=== PATIENT | male | born 1955 | race American Indian/Alaskan Native ===

== ENCOUNTER 2018-04-22 20:01 | Observation (INO) | payer MEDICARE ==
[2018-04-22 21:20] LABS: BASO % 0.5 % (0.0-2.0); EOS # 0.1 K/uL (0.0-0.7); EOS % 1.6 % (0.0-4.0); HEMOGLOBIN 12.7 g/dL (12.0-18.0); LYMPH # 1.1 K/uL (1.0-4.3); LYMPH % 16.7 % (20.0-40.0); MEAN CORPUSCULAR HEMOGLOBIN 22.7 pg (27.0-31.0); MEAN CORPUSCULAR HGB CONC 32.4 g/dL (33.0-37.0); MEAN PLATELET VOLUME 10.3 fL (7.2-11.7); MONO # 0.5 K/uL (0.0-0.8); MONO % 7.8 % (0.0-10.0); NEUT # 4.9 K/uL (1.8-7.0); NEUT % 73.4 % (50.0-75.0); NRBC % 0.1 % (0.0-2.0); RBC 5.61 Mil/uL (4.40-5.90); RED CELL DISTRIBUTION WIDTH 16.4 % (11.5-14.5); WHITE BLOOD COUNT 6.7 K/uL (4.8-10.8)
[2018-04-22 21:23] LABS: URINE BILIRUBIN NEGATIVE (NEGATIVE); URINE BLOOD NEGATIVE (NEGATIVE); URINE CLARITY Clear (Clear); URINE COLOR Straw (YELLOW); URINE GLUCOSE (UA) NORMAL (Normal); URINE LEUKOCYTE ESTERASE NEG Leu/uL (Negative); URINE PROTEIN 2+ mg/dL (NEGATIVE); URINE UROBILINOGEN NORMAL mg/dL (0.2-1.0)
[2018-04-22 21:29] LABS: ALB/GLOB RATIO 1.2 (1.0-2.1); ALBUMIN 3.4 g/dL (3.5-5.0); ALT/SGPT 31 U/L (21-72); AST/SGOT 31 U/L (17-59); BLOOD UREA NITROGEN 24 mg/dL (9-20); CALCIUM 8.5 mg/dl (8.6-10.4); GFR NON-AFRICAN AMERICAN > 60
[2018-04-22 21:30] LABS: INR 1.1; PROTHROMBIN TIME 12.2 SECONDS (9.7-12.2)
--- NOTE | 2018-04-22 21:34 | C.PDOC ---
History Of Present Illness 63 y/o male with PMHx of HTN, presents to the ED with complaints of left-sided chest pain and left shoulder pain, associated with palpations, that began this evening. Denies any fever, cough, nausea, vomiting, cold sweats, dizziness, or URI symptoms. Denies any prior hx of acute IN. Time Seen by Provider: 04/22/18 20:51 Chief Complaint (Nursing): Palpitations History Per: Patient History/Exam Limitations: no limitations Onset/Duration Of Symptoms: Hrs Current Symptoms Are (Timing): Still Present Past Medical History Reviewed: Historical Data, Nursing Documentation, Vital Signs Vital Signs: Last Vital Signs Temp 98.3 F 04/22/18 20:05 Pulse 72 04/22/18 20:45 Resp 16 04/22/18 20:45 BP 141/65 04/22/18 20:45 Pulse Ox 97 04/22/18 20:45 - Medical History PMH: HTN Family History: States: No Known Family Hx - Social History Hx Alcohol Use: No Hx Substance Use: No - Immunization History Hx Tetanus Toxoid Vaccination: No Hx Influenza Vaccination: Yes Hx Pneumococcal Vaccination: Yes Review Of Systems Constitutional: Negative for: Fever, Chills, Sweats Cardiovascular: Positive for: Chest Pain, Palpitations Respiratory: Negative for: Cough Gastrointestinal: Negative for: Nausea, Vomiting, Diarrhea Musculoskeletal: Positive for: Shoulder Pain Neurological: Negative for: Weakness, Dizziness Physical Exam - Physical Exam Appears: Non-toxic, No Acute Distress Skin: Warm, Dry, No Diaphoretic Head: Atraumatic, Normacephalic Eye(s): bilateral: Normal Inspection, PERRL, EOMI Oral Mucosa: Moist Neck: Normal ROM Chest: Symmetrical, No Deformity, No Tenderness Cardiovascular: Rhythm Regular, No Murmur Respiratory: Normal Breath Sounds, No Rales, No Rhonchi, No Wheezing Gastrointestinal/Abdominal: Soft, No Tenderness, No Distention Extremity: Normal ROM (with FROM of b/l upper extremities), No Tenderness, No Pedal Edema, No Deformity Neurological/Psych: Oriented x3, Normal Speech ED Course And Treatment - Laboratory Results Result Diagrams: 04/22/18 21:08 04/22/18 21:08 ECG: Interpreted By Me, Viewed By Me ECG Rhythm: Sinus Rhythm, Nonspecific Changes Interpretation Of ECG: No prior EKG for comparison Rate From EC (bpm) O2 Sat by Pulse Oximetry: 97 Medical Decision Making Medical Decision Making: cp ro acs vs metabolic vs pe Initial Plan: --CMP --Pro-BNP --Trop --CBC --d dimer --PTT --UA --Chest x-ray Labs and imaging reviewed, discussed w/ patient. cxr neg as read by me. pt r eports taking asa today. pt with symptom <6 hours from onset to ed presentaiton . will need serial trop. ekg with lateral changes, no previous for comparison. accepted for obs. Disposition - Disposition Disposition: HOSPITALIZED Disposition Time: 18:00 Condition: STABLE - Clinical Impression Clinical Impression: Palpitations, Chest pain - Scribe Statement The provider has reviewed the documentation as recorded by the Carmel Carlin Provider Attestation: All medical record entries made by the Carmel were at my direction and personally dictated by me. I have reviewed the chart and agree that the record accurately reflects my personal performance of the history, physical exam, medical decision making, and the department course for this patient. I have also personally directed, reviewed, and agree with the discharge instructions and disposition. Decision To Admit - Pt Status Changed To: Hospital Disposition Of: Observation - . Bed Request Type: Telemetry Admitting Physician: Felice العراقي Patient Diagnosis: Palpitations, Chest pain
[2018-04-22 21:43] LABS: B-TYPE NATRIURETIC PEPTIDE 279 pg/mL (0-900)
[2018-04-22 21:50] LABS: D DIMER < 200.0 ng/mlDDU (0-243)
--- NOTE | 2018-04-22 22:41 | CP.PCM.HP ---
Past Patient History - Past Social History Smoking Status: Former Smoker - CARDIAC Hx Hypertension: Yes - PSYCHIATRIC Hx Substance Use: No - SURGICAL HISTORY Hx Herniorrhaphy: Yes (VENTRAL) Other/Comment: RIGHT KNEE SURGERY - ANESTHESIA Hx Anesthesia: Yes Hx Anesthesia Reactions: No Meds Allergies/Adverse Reactions: Allergies Allergy/AdvReac Type Severity Reaction Status Date / Time No Known Allergies Allergy Unverified 04/22/18 20:12 Results - Vital Signs Recent Vital Signs: Last Vital Signs Temp 98.1 F 04/22/18 22:00 Pulse 68 04/22/18 22:00 Resp 19 04/22/18 22:00 BP 143/68 04/22/18 22:00 Pulse Ox 98 04/22/18 22:00 - Labs Result Diagrams: 04/22/18 21:08 04/22/18 21:08 Labs: Laboratory Results - last 24 hr 04/22/18 04/22/18 04/22/18 21:08 21:08 21:08 WBC 6.7 RBC 5.61 Hgb 12.7 Hct 39.2 MCV 70.0 L MCH 22.7 L MCHC 32.4 L RDW 16.4 H Plt Count 131 MPV 10.3 Neut % (Auto) 73.4 Lymph % (Auto) 16.7 L Lares % (Auto) 7.8 Eos % (Auto) 1.6 Baso % (Auto) 0.5 Neut # (Auto) 4.9 Lymph # (Auto) 1.1 Lares # (Auto) 0.5 Eos # (Auto) 0.1 Baso # (Auto) 0.0 PT 12.2 INR 1.1 D-Dimer, Quantitative < 200.0 Sodium Potassium Chloride Carbon Dioxide Anion Gap BUN Creatinine Est GFR ( Amer) Est GFR (Non-Af Amer) Random Glucose Calcium Total Bilirubin AST ALT Alkaline Phosphatase Troponin I NT-Pro-B Natriuret Pep Total Protein Albumin Globulin Albumin/Globulin Ratio Urine Color Straw Urine Clarity Clear Urine pH 6.0 Ur Specific Abbot 1.011 Urine Protein 2+ H Urine Glucose (UA) Normal Urine Ketones Negative Urine Blood Negative Urine Nitrate Negative Urine Bilirubin Negative Urine Urobilinogen Normal Ur Leukocyte Esterase Neg Urine WBC (Auto) < 1 Urine RBC (Auto) < 1 04/22/18 21:08 WBC RBC Hgb Hct MCV MCH MCHC RDW Plt Count MPV Neut % (Auto) Lymph % (Auto) Lares % (Auto) Eos % (Auto) Baso % (Auto) Neut # (Auto) Lymph # (Auto) Lares # (Auto) Eos # (Auto) Baso # (Auto) PT INR D-Dimer, Quantitative Sodium 137 Potassium 3.7 Chloride 101 Carbon Dioxide 25 Anion Gap 14 BUN 24 H Creatinine 1.2 Est GFR ( Amer) > 60 Est GFR (Non-Af Amer) > 60 Random Glucose 147 H Calcium 8.5 L Total Bilirubin 0.5 AST 31 ALT 31 Alkaline Phosphatase 63 Troponin I < 0.0120 NT-Pro-B Natriuret Pep 279 Total Protein 6.3 Albumin 3.4 L Globulin 2.9 Albumin/Globulin Ratio 1.2 Urine Color Urine Clarity Urine pH Ur Specific Abbot Urine Protein Urine Glucose (UA) Urine Ketones Urine Blood Urine Nitrate Urine Bilirubin Urine Urobilinogen Ur Leukocyte Esterase Urine WBC (Auto) Urine RBC (Auto) Assessment & Plan - Assessment and Plan (Free Text) Plan: cardio [email or web address] asp nifedipine er losartan cardiac
--- NOTE | 2018-04-23 09:16 | RAD ---
Date of service: 04/22/2018 HISTORY: chest pain COMPARISON: None available. FINDINGS: LUNGS: Poor inspiration with low lung volumes, crowded bronchovascular markings and mild bibasilar atelectasis right greater than left. PLEURA: No significant pleural effusion identified, no pneumothorax apparent. CARDIOVASCULAR: No aortic atherosclerotic calcification present. Normal cardiac size. No pulmonary vascular congestion. OSSEOUS STRUCTURES: No significant abnormalities. VISUALIZED UPPER ABDOMEN: Normal. OTHER FINDINGS: None. IMPRESSION: Poor inspiration with low lung volumes, crowded bronchovascular markings and mild bibasilar atelectasis right greater than left.
[2018-04-23] MEDS ORDERED: NIFEDIPINE 60 MG PO SCH (10:00)
[2018-04-23] MEDS ORDERED: Enoxaparin 40 mg Syringe SC SCH (10:00)
[2018-04-23] MEDS ORDERED: LOSARTAN 50 MG PO SCH (10:00)
[2018-04-23] MEDS ORDERED: Pantoprazole 40 mg EC Tab PO SCH (10:00)
[2018-04-23] MEDS ORDERED: NIFEdipine 60 mg ER Tab PO SCH (10:15)
[2018-04-23 16:23] VITALS: TEMP 98.2
--- NOTE | 2018-04-23 18:03 | CP.PCM.CON ---
History of Present Illness - History of Present Illness History of Present Illness: I was asked to see patient by Dr العراقي. Patient seen 04/23/18 1800 Patient is a 63 year old male with HTN, hypercholesterolemia who presents with palpitations. Patient was driving back to [place] when he felt the sensation of palpitations and irregularity in the heart beat. He felt pressure in his back. He states he follows with a heel seat sander in [place]. Last stress test was normal in May as per patient. Review of Systems - Constitutional Constitutional: absent: As Per HPI, Anorexia, Chills, Daytime Sleepiness, Excessive Sweating, Fatigue, Fever, Frequent Falls, Headache, Increased Appetite, Lethargy, Malaise, Night Sweats, Snoring, Sleep Apnea, Weight Gain, Weight Loss, Weakness, Other - EENT Eyes: absent: As Per HPI, Blind Spots, Blurred Vision, Change in Vision, Decreased Night Vision, Diplopia, Discharge, Dry Eye, Exophthalmos, Floaters, Irritation, Itchy Eyes, Loss of Peripheral Vision, Pain, Photophobia, Requires Corrective Lenses, Sees Flashes, Spots in Vision, Tunnel Vision, Other Visual Disturbances, Loss of Vision, Other Ears: absent: As Per HPI, Decreased Hearing, Ear Discharge, Ear Pain, Tinnitus, Abnormal Hearing, Disequilibrium, Dizziness, Other Nose/Mouth/Throat: absent: As Per HPI, Epistaxis, Nasal Congestion, Nasal Discharge, Nasal Obstruction, Nasal Trauma, Nose Pain, Post Nasal Drip, Sinus Pain, Sinus Pressure, Bleeding Gums, Change in Voice, Dental Pain, Dry Mouth, Dysphagia, Halitosis, Hoarsness, Lip Swelling, Mouth Lesions, Mouth Pain, Odynophagia, Sore Throat, Throat Swelling, Tongue Swelling, Facial Pain, Neck Pain, Neck Mass, Other - Cardiovascular Cardiovascular: Palpitations - Respiratory Respiratory: absent: As Per HPI, Cough, Dyspnea, Hemoptysis, Dyspnea on Exertion, Wheezing, Snoring, Stridor, Pain on Inspiration, Chest Congestion, Excessive Mucous Production, Change in Mucous Color, Pain with Coughing, Other - Gastrointestinal Gastrointestinal: absent: As Per HPI, Abdominal Pain, Belching, Bloating, Change in Bowel Habits, Change in Stool Character, Coffee Ground Emesis, Constipation, Cramping, Diarrhea, Dyspepsia, Dysphagia, Early Satiety, Excessive Flatus, Fecal Incontinence, Heartburn, Hematemesis, Hematochezia, Loose Stools, Melena, Nausea, Odynophagia, Temesmus, Vomiting, Other - Genitourinary Genitourinary: absent: As Per HPI, Change in Urinary Stream, Difficulty Urinating, Dysuria, Flank Pain, Hematuria, Pyuria, Nocturia, Urinary Incontinenc e, Urinary Frequency, Urinary Hesitance, Urinary Urgency, Voiding Freq/Small Amts, Freq UTI, Hx Renal/Bladder Calculi, Hx /Renal Surgery, Bladder Distension, Other - Musculoskeletal Musculoskeletal: absent: As Per HPI, Abnormal Gait, Arthralgias, Atrophy, Back Pain, Deformity, Joint Swelling, Limited Range of Motion, Loss of Height, Muscle Cramps, Muscle Weakness, Myalgias, Neck Pain, Numbness, Radiating Pain into Limb, Stiffness, Tingling, Other - Integumentary Integumentary: absent: As Per HPI, Acne, Alopecia, Bleeding Lesions, Change in Hair, Change in Nails, Change in Pigmentation, Changing Lesions, Dry Skin, Erythema, Furuncle, Hirsutism, Lesions, New Lesions, Non-Healing Lesions, Photosensitivity, Pruritus, Rash, Skin Pain, Skin Ulcer, Sores, Striae, Swelling, Unusual Bruising, Wounds, Jaundice, Other - Neurological Neurological: absent: As Per HPI, Abnormal Gait, Abnormal Hearing, Abnormal Movements, Abnormal Speech, Behavioral Changes, Burning Sensations, Confusion, Convulsions, Disequilibrium, Dizziness, Numbness, Focal Weakness, Frequent Falls, Headaches, Lack of Coordination, Loss of Vision, Memory Loss, Paresthesias, Radicular Pain, Restless Legs, Sensory Deficit, Syncope, Tingling, Tremor, Vertigo, Weakness, Other Visual Disturbances, Other - Psychiatric Psychiatric: absent: As Per HPI, Abnormal Sleep Pattern, Anhedonia, Anxiety, Auditory Hallucinations, Behavioral Changes, Change in Appetite, Change in Li benji, Confusion, Depression, Difficulty Concentrating, Hallucinations, Homicidal Ideation, Hopelessness, Irritability, Memory Loss, Mood Swings, Panic Attacks, Paranoia, Suicidal Ideation, Visual Hallucinations, Tactile Hallucinations, Other - Endocrine Endocrine: absent: As Per HPI, Change in Body Appearance, Change in Libido, Cold Intolorance, Deepening of Voice, Excessive Sweating, Fatigue, Flushing, Heat Intolorance, Increase in Ring/Shoe/Hat Size, Palpitations, Polydipsia, Polyphagia, Polyuria, Other - Hematologic/Lymphatic Hematologic: absent: As Per HPI, Easy Bleeding, Easy Bruising, Lymphadenopathy, Other Past Patient History - Past Medical History & Family History Past Medical History?: Yes - Past Social History Smoking Status: Former Smoker - CARDIAC Hx Cardiac Disorders: Yes Hx Hypercholesterolemia: Yes Hx Hypertension: Yes - PULMONARY Hx Respiratory Disorders: Yes Hx Sleep Apnea: Yes (2008) - NEUROLOGICAL Hx Neurological Disorder: Yes Other/Comment: "Neuropathy, spondilolesthesis, tingling" - HEENT Hx HEENT Problems: Yes Hx Epistaxis: Yes - RENAL Hx Chronic Kidney Disease: Yes Other/Comment: Kidney cysts "multiple" - ENDOCRINE/METABOLIC Hx Endocrine Disorders: No - HEMATOLOGICAL/ONCOLOGICAL Hx Blood Disorders: Yes Hx Cancer: Yes (Prostate CA s/p cryoablation 03/2017) - INTEGUMENTARY Hx Dermatological Problems: No - MUSCULOSKELETAL/RHEUMATOLOGICAL Hx Musculoskeletal Disorders: Yes Hx Arthritis: Yes Hx Back Pain: Yes Hx Falls: No Hx Fractures: Yes (Left foot stress fracture) - GASTROINTESTINAL Hx Gastrointestinal Disorders: Yes Hx Fatty Liver Disease: Yes - GENITOURINARY/GYNECOLOGICAL Hx Genitourinary Disorders: Yes Hx Prostate Problems: Yes - PSYCHIATRIC Hx Psychophysiologic Disorder: No Hx Substance Use: No - SURGICAL HISTORY Hx Surgeries: Yes Hx Herniorrhaphy: Yes (VENTRAL) Other/Comment: RIGHT KNEE SURGERY - ANESTHESIA Hx Anesthesia: Yes Hx Anesthesia Reactions: No Hx Malignant Hyperthermia: No Has any member of the family had a problem w/ anesthesia?: No Meds Allergies/Adverse Reactions: Allergies Allergy/AdvReac Type Severity Reaction Status Date / Time No Known Allergies Allergy Unverified 04/22/18 20:12 - Medications Medications: Current Medications Aspirin (Aspirin) 325 mg PO DAILY [facility] Last Admin: 04/23/18 10:21 Dose: 325 mg Ezetimibe (Zetia) 10 mg PO DAILY [facility] Enoxaparin Sodium (Lovenox) 40 mg SC DAILY [facility] Last Admin: 04/23/18 10:21 Dose: 40 mg Ibuprofen (Motrin Tab) 600 mg PO Q8 PRN PRN Reason: Pain Losartan Potassium (Cozaar) 50 mg PO DAILY [facility] Last Admin: 04/23/18 11:02 Dose: 50 mg Nifedipine (Procardia Xl) 60 mg PO DAILY [facility] Last Admin: 04/23/18 11:00 Dose: 60 mg Pantoprazole Sodium (Protonix Ec Tab) 40 mg PO DAILY [facility] Last Admin: 04/23/18 10:18 Dose: 40 mg Physical Exam - Constitutional Appears: Non-toxic - Head Exam Head Exam: NORMAL INSPECTION - Eye Exam Eye Exam: Normal appearance - ENT Exam ENT Exam: Mucous Membranes Moist - Neck Exam Neck exam: Positive for: Full Rom - Respiratory Exam Respiratory Exam: NORMAL BREATHING PATTERN - Cardiovascular Exam Cardiovascular Exam: REGULAR RHYTHM, RRR, +S1, +S2 Additional comments: ectopic beats - GI/Abdominal Exam GI & Abdominal Exam: Normal Bowel Sounds - Rectal Exam Rectal Exam: Deferred - Extremities Exam Extremities exam: Positive for: normal inspection. Negative for: pedal edema - Back Exam Back exam: NORMAL INSPECTION - Neurological Exam Neurological exam: Alert, Oriented x3 - Psychiatric Exam Psychiatric exam: Normal Affect - Skin Skin Exam: Normal Color Results - Vital Signs Recent Vital Signs: Last Vital Signs Temp 98.2 F 04/23/18 16:22 Pulse 64 04/23/18 16:22 Resp 16 04/23/18 16:22 BP 167/71 H 04/23/18 16:22 Pulse Ox 98 04/23/18 16:22 - Labs Result Diagrams: 04/22/18 21:08 04/22/18 21:08 Labs: Laboratory Results - last 24 hr 04/22/18 04/22/18 04/22/18 21:08 21:08 21:08 WBC 6.7 RBC 5.61 Hgb 12.7 Hct 39.2 MCV 70.0 L MCH 22.7 L MCHC 32.4 L RDW 16.4 H Plt Count 131 MPV 10.3 Neut % (Auto) 73.4 Lymph % (Auto) 16.7 L [place] % (Auto) 7.8 Eos % (Auto) 1.6 Baso % (Auto) 0.5 Neut # (Auto) 4.9 Lymph # (Auto) 1.1 [place] # (Auto) 0.5 Eos # (Auto) 0.1 Baso # (Auto) 0.0 PT 12.2 INR 1.1 D-Dimer, Quantitative < 200.0 Sodium Potassium Chloride Carbon Dioxide Anion Gap BUN Creatinine Est GFR ( Amer) Est GFR (Non-Af Amer) POC Glucose (mg/dL) Random Glucose Calcium Total Bilirubin AST ALT Alkaline Phosphatase Troponin I NT-Pro-B Natriuret Pep Total Protein Albumin Globulin Albumin/Globulin Ratio Urine Color Straw Urine Clarity Clear Urine pH 6.0 Ur Specific Eva 1.011 Urine Protein 2+ H Urine Glucose (UA) Normal Urine Ketones Negative Urine Blood Negative Urine Nitrate Negative Urine Bilirubin Negative Urine Urobilinogen Normal Ur Leukocyte Esterase Neg Urine WBC (Auto) < 1 Urine RBC (Auto) < 1 04/22/18 04/23/18 04/23/18 21:08 05:47 07:42 WBC RBC Hgb Hct MCV MCH MCHC RDW Plt Count MPV Neut % (Auto) Lymph % (Auto) [place] % (Auto) Eos % (Auto) Baso % (Auto) Neut # (Auto) Lymph # (Auto) [place] # (Auto) Eos # (Auto) Baso # (Auto) PT INR D-Dimer, Quantitative Sodium 137 Potassium 3.7 Chloride 101 Carbon Dioxide 25 Anion Gap 14 BUN 24 H Creatinine 1.2 Est GFR ( Amer) > 60 Est GFR (Non-Af Amer) > 60 POC Glucose (mg/dL) 83 Random Glucose 147 H Calcium 8.5 L Total Bilirubin 0.5 AST 31 ALT 31 Alkaline Phosphatase 63 Troponin I < 0.0120 0.0140 NT-Pro-B Natriuret Pep 279 Total Protein 6.3 Albumin 3.4 L Globulin 2.9 Albumin/Globulin Ratio 1.2 Urine Color Urine Clarity Urine pH Ur Specific Eva Urine Protein Urine Glucose (UA) Urine Ketones Urine Blood Urine Nitrate Urine Bilirubin Urine Urobilinogen Ur Leukocyte Esterase Urine WBC (Auto) Urine RBC (Auto) 04/23/18 12:56 WBC RBC Hgb Hct MCV MCH MCHC RDW Plt Count MPV Neut % (Auto) Lymph % (Auto) [place] % (Auto) Eos % (Auto) Baso % (Auto) Neut # (Auto) Lymph # (Auto) [place] # (Auto) Eos # (Auto) Baso # (Auto) PT INR D-Dimer, Quantitative Sodium Potassium Chloride Carbon Dioxide Anion Gap BUN Creatinine Est GFR ( Amer) Est GFR (Non-Af Amer) POC Glucose (mg/dL) Random Glucose Calcium Total Bilirubin AST ALT Alkaline Phosphatase Troponin I < 0.0120 NT-Pro-B Natriuret Pep Total Protein Albumin Globulin Albumin/Globulin Ratio Urine Color Urine Clarity Urine pH Ur Specific Eva Urine Protein Urine Glucose (UA) Urine Ketones Urine Blood Urine Nitrate Urine Bilirubin Urine Urobilinogen Ur Leukocyte Esterase Urine WBC (Auto) Urine RBC (Auto) - EKG Data EKG Interpreted by: Myself EKG shows normal: Sinus rhythm Assessment & Plan (1) HTN (hypertension) Assessment and Plan: will need blood pressure control. consider the addition of Toprol XL 25 mg daily. Patient can follow up with his primary doctor. Status: Acute (2) Premature ventricular complex Assessment and Plan: isolated. Left ventricular function by echocardiogram. no further evidence of arrhythmia. recommend outpatient holter Status: Acute (3) Hypercholesteremia Assessment and Plan: statin therapy Status: Acute
[2018-04-23 18:14] VITALS: O2SAT 97
[2018-04-23 18:16] VITALS: PULSE 63
[2018-04-23 19:15] VITALS: BP 166/66; RESP 20
--- NOTE | 2018-04-24 17:17 | CARD ---
APPROVED REPORT Date of service: 04/23/2018 EKG Measurement Heart [id number] <Conclusion> Sinus bradycardia ST & T wave abnormality, consider inferolateral ischemia Abnormal ECG
--- NOTE | 2018-04-24 19:12 | CARD ---
APPROVED REPORT Date of service: 04/23/2018 EXAM: Two-dimensional and M-mode echocardiogram with Doppler and color Doppler. Other Information Quality : GoodRhythm : INDICATION Dyspnea Chest Pain RISK FACTORS Hypertension 2D DIMENSIONS IVSd1.0 (0.7-1.1cm)LVDd4.3 (3.9-5.9cm) PWd1.0 (0.7-1.1cm)LA Moeddd34 (18-58mL) LVDs3.0 (2.5-4.0cm)FS (%) 31.0 % LVEF (%)59.0 (>50%)LVEF (Teran's)57.75 % IVC0.00 cm M-Mode DIMENSIONS RVDd1.40 (2.1-3.2cm)Left Atrium (MM)3.79 (2.5-4.0cm) IVSd0.89 (0.7-1.1cm)Aortic Root3.41 (2.2-3.7cm) LVDd4.82 (4.0-5.6cm)Aortic Cusp Exc.2.13 (1.5-2.0cm) PWd1.11 (0.7-1.1cm)FS (%) 41 % LVDs2.83 (2.0-3.8cm)LVEF (%)60 (>50%) Aortic Valve AI P 1/2 [id number] Mitral Valve MV E Zpddcqgl56.0cm/sMV A Inyqcirv821.3cm/sE/A ratio0.7 TDI Lateral E' Peak V9.58cm/sMedial E' Peak V8.61cm/sE/Lateral E'7.9 E/Medial E'8.8 Tricuspid Valve TR Peak [id number]/sTR Peak [id number] LEFT VENTRICLE The left ventricle is normal size. There is normal left ventricular wall thickness. Left ventricle systolic function is normal. The Ejection Fraction is 60-65%. There is normal LV segmental wall motion. Tissue Doppler imaging reveals abnormal left ventricular diastolic dysfunction. RIGHT VENTRICLE The right ventricle is normal size. There is normal right ventricular wall thickness. The right ventricular systolic function is normal. ATRIA The left atrium size is normal. The right atrium size is normal. The interatrial septum is intact with no evidence for an atrial septal defect. AORTIC VALVE The aortic valve is normal in structure. No aortic regurgitation is present. There is no aortic valvular stenosis. There is no aortic valvular vegetation. MITRAL VALVE The mitral valve is normal in structure. There is no evidence of mitral valve prolapse. There is no mitral valve stenosis. Mitral regurgitation is mild. TRICUSPID VALVE The tricuspid valve is normal in structure. There is mild tricuspid regurgitation. Right ventricular systolic pressure is estimated at 40-50 mmHg. There is mild-moderate pulmonary hypertension. PULMONIC VALVE The pulmonic valve is not well visualized. There is mild to moderate pulmonic valvular regurgitation. GREAT VESSELS The aortic root is normal in size. PERICARDIAL EFFUSION There is no significant pericardial effusion. <Conclusion> Left ventricle systolic function is normal. The Ejection Fraction is 60-65%. Diastolic dysfunction. No aortic regurgitation is present. Mitral regurgitation is mild. There is mild tricuspid regurgitation. There is mild-moderate pulmonary hypertension. There is mild to moderate pulmonic valvular regurgitation.
== END 2018-04-23 19:28 | disposition left against medical advice (07) ==
LOC: C.ER 20:01 → C.9E 22:24 → C.6T 04-23 16:08
PROVIDERS: ADMIT Internal Medicine Nephrology; ATTEND Internal Medicine Nephrology
DX: I12.9 Hypertensive chronic kidney disease with stage 1 through stage 4 chronic kidney disease, or unspecified chronic kidney disease (principal); I49.3 Ventricular premature depolarization; K76.0 Fatty (change of) liver, not elsewhere classified; N18.9 Chronic kidney disease, unspecified; Z85.46 Personal history of malignant neoplasm of prostate; Z87.891 Personal history of nicotine dependence; G62.9 Polyneuropathy, unspecified; R00.2 Palpitations; E78.00 Pure hypercholesterolemia, unspecified; G47.30 Sleep apnea, unspecified
CPT/HCPCS: 71045; 80053; 81001; 82948; 83880; 84484; 85025; 85378; 85610; 93306; 96372; G0378; J1650